=== PATIENT | male | born 1970 | race Caucasian/White ===

== ENCOUNTER 2016-07-28 02:28 | Observation (INO) | payer BC ==
[2016-07-28] MEDS ORDERED: Morphine 10 MG/ML Syringe IVPUSH ONE ×2 (02:53→03:28)
[2016-07-28] MEDS ORDERED: Ondansetron 4 MG/2 ML SDV IVPUSH ONE (02:54)
[2016-07-28 03:07] LABS: CHLORIDE,CL 101 mmol/L (98-107); SODIUM,NA 139 mmol/L (136-145)
[2016-07-28] MEDS ORDERED: Sodium Chloride 0.9% 1,000 ML IV ONE (03:33)
--- NOTE | 2016-07-28 03:33 | EDM.PDOC ---
ED HPI GENERAL MEDICAL PROBLEM - General Chief Complaint: General Stated Complaint: Abdominal Pain Time Seen by Provider: 07/28/16 03:03 Source of Information: Reports: Patient, Family History Limitations: Reports: No limitations - History of Present Illness INITIAL COMMENTS - FREE TEXT/NARRATIVE: Sudden sharp abdominal pain that began around 11pm. Has now persisted for over 4 hours. Positional change makes no difference in pain. No reported radiation. Had one episode of nausea/vomiting prior to arrival. Similar, less intense episode of pain about two months ago. Resolved on own. Also started in middle of night like this. Patient was started on Augmentin mid week for "sinus infection". He reports being ill last week with flu-like illness. Symptoms included sinus congestion, body aches, cough, and diarrhea. Diarrhea persists. Describes stool as being dark in color. No urinary complaints. No increased burping. No history of prior abdominal surgery. - Related Data Allergies Allergy/AdvReac Type Severity Reaction Status Date / Time No Known Allergies Allergy Verified 07/28/16 02:55 Home Meds: Home Meds Amoxicillin/Clavulanate K [Augmentin 875 MG/125 MG] 1 tab PO BID 07/28/16 [ History] Past Medical History - Past Health History Medical/Surgical History: Denies Medical/Surgical History Social & Family History - Tobacco Use Smoking Status *Q: Current Every Day Smoker Years of Tobacco use: 15 Packs/Tins Daily: 0.5 - Caffeine Use Caffeine Use: Reports: Soda ED ROS GENERAL - Review of Systems Review Of Systems: See Below Constitutional: Reports: malaise, diaphoresis, decreased appetite. Denies: fever, chills, weakness, fatigue, weight loss, weight gain HEENT: Reports: Sinus problem. Denies: Ear pain, Throat swelling, Vertigo Respiratory: Reports: cough (last week, has improved. ). Denies: shortness of breath, wheezing, pleuritic chest pain, sputum, hemoptysis Cardiovascular: Reports: No symptoms. Denies: Chest pain GI/Abdominal: Reports: Abdominal pain, Diarrhea, Decreased appetite, Nausea, Vomiting, Other (darker stools). Denies: Difficulty swallowing, Distension, Hematemesis, Mucous in stool : Reports: no symptoms Musculoskeletal: Reports: other (diffuse achiness) Skin: Reports: no symptoms Neurological: Reports: tingling (all four limbs currently). Denies: confusion, dizziness, headache, syncope, trouble speaking Psychiatric: Reports: No symptoms Hematologic/Lymphatic: Reports: no symptoms Immunologic: Reports: no symptoms ED EXAM, GENERAL - Physical Exam Exam: See Below Exam Limited By: No limitations General Appearance: alert, WD/WN, moderate distress Eye Exam: bilateral eye: EOMI, PERRL Ears: normal external exam Nose: No: nasal swelling, nasal drainage, clear rhinorrhea Throat/Mouth: Normal inspection, Normal voice, No airway compromise Head: atraumatic, normocephalic Neck: normal inspection, supple, non-tender, full range of motion. No: lymphadenopathy (L), lymphadenopathy (R) Respiratory/Chest: no respiratory distress, lungs clear, normal breath sounds, no accessory muscle use, chest non-tender Cardiovascular: normal peripheral pulses, regular rate, rhythm, no edema Peripheral Pulses: 3+: radial (L), radial (R) GI/Abdominal: normal bowel sounds, soft, tender (RUQ and alethea-umbilically). No : no distention, no abnormal bruit, guarding, rigid, rebound (Male) Exam: Deferred Rectal (Males) Exam: Normal rectal tone, Prostate normal, Heme - stool, Hemorrhoids Back Exam: CVA tenderness (R) Extremities: normal inspection Neurological: alert, oriented, normal cognition, no motor/sensory deficits Psychiatric: normal affect, normal mood Skin Exam: Warm, Dry, Intact, Normal color Course - Vital Signs Last Recorded V/S: Last Vital Signs Temp 36.4 C 07/28/16 02:30 Pulse 81 07/28/16 02:30 Resp 20 07/28/16 02:30 BP 144/96 H 07/28/16 02:30 Pulse Ox 100 07/28/16 02:30 - Orders/Labs/Meds Orders: Active Orders 24 hr Category Date Time Status Peripheral IV Care [RC] . DIRECTED Care 07/28/16 03:58 Active Abdomen 2V AP Flat Upright [CR] Stat Exams 07/28/16 02:50 Ordered Abdomen Pelvis w Cont [CT] Routine Exams 07/28/16 05:00 Ordered Abdomen Pelvis wo Cont [CT] Stat Exams 07/28/16 03:27 Taken OCCULT BLOOD DIAGNOSTIC [OP] Stat Lab 07/28/16 04:13 Ordered Iopamidol [Isovue-300 (61%)] Med 07/28/16 05:00 Once 100 ml IVPUSH ONETIME ONE Sodium Chloride 0.9% [Normal Saline] 1,000 ml Med 07/28/16 03:33 Ordered IV .BOLUS Sodium Chloride 0.9% [Saline Flush] Med 07/28/16 03:58 Active 10 ml FLUSH ASDIRECTED PRN Peripheral IV Insertion Adult [OM.PC] Routine Oth 07/28/16 02:35 Ordered Medication Orders Sodium Chloride (Normal Saline) 1,000 mls @ 999 mls/hr IV .BOLUS ONE Stop: 07/28/16 04:33 Last Admin: 07/28/16 03:58 Dose: 999 mls/hr Iopamidol (Isovue-300 (61%)) 100 ml IVPUSH ONETIME ONE Stop: 07/28/16 05:01 Sodium Chloride (Saline Flush) 10 ml FLUSH ASDIRECTED PRN PRN Reason: Keep Vein Open Labs: Laboratory Tests 07/28/16 07/28/16 Range/Units 02:54 02:54 WBC 7.1 (4.0-10.2) K/uL RBC 5.15 (4.33-5.41) M/uL Hgb 15.9 (13.1-16.8) g/dL Hct 47.3 (39.0-49.0) % MCV 91.8 (84.0-98.0) fL MCH 30.9 (28.2-33.3) pg MCHC 33.6 (31.7-36.0) g/dL RDW 13.0 (11.2-14.1) % Plt Count 275 (150-350) K/uL Neut % (Auto) 74.7 (45.0-80.0) % Lymph % (Auto) 16.0 (10.0-50.0) % Converse % (Auto) 8.8 (2.0-14.0) % Eos % (Auto) 0.4 (0.0-5.0) % Baso % (Auto) 0.1 (0.0-2.0) % Neut # 5.31 (1.40-7.00) K/uL Lymph # 1.14 (0.50-3.50) K/uL Converse # 0.63 (0.00-1.00) K/uL Eos # 0.03 (0.00-0.50) K/uL Baso # 0.01 (0.00-0.20) K/uL Sodium 139 (136-145) mmol/L Potassium 3.6 (3.5-5.1) mmol/L Chloride 101 (98-107) mmol/L Carbon Dioxide 26.5 (21.0-32.0) mmol/L BUN 9 (7-18) mg/dL Creatinine 1.05 (0.51-1.17) mg/dL Est Cr Clr Drug Dosing TNP Estimated GFR (MDRD) > 60 mL/min Glucose 166 H (74-106) mg/dL Calcium 8.9 (8.5-10.1) mg/dL Total Bilirubin 0.4 (0.2-1.0) mg/dL AST 48 H (15-37) U/L ALT 81 H (12-78) U/L Alkaline Phosphatase 60 (46-116) IU/L Total Protein 8.1 (6.4-8.2) g/dL Albumin 3.8 (3.4-5.0) g/dL Amylase 77 (25-115) U/L Lipase 134 (73-393) U/L Meds: Medications Generic Name Dose Route Start Last Admin Trade Name Freq PRN Reason Stop Dose Admin Sodium Chloride 1,000 mls @ 999 mls/hr 07/28/16 03:33 07/28/16 03:58 Normal Saline IV 07/28/16 04:33 999 mls/hr .BOLUS ONE Administration Iopamidol 100 ml 07/28/16 05:00 Isovue-300 (61%) IVPUSH 07/28/16 05:01 ONETIME ONE Sodium Chloride 10 ml 07/28/16 03:58 Saline Flush FLUSH ASDIRECTED PRN Keep Vein Open Discontinued Medications Generic Name Dose Route Start Last Admin Trade Name Freq PRN Reason Stop Dose Admin Morphine Sulfate 5 mg 07/28/16 02:53 07/28/16 02:57 Morphine IVPUSH 07/28/16 02:54 5 mg ONETIME ONE Administration Morphine Sulfate 5 mg 07/28/16 03:28 07/28/16 04:04 Morphine IVPUSH 07/28/16 03:29 5 mg ONETIME ONE Administration Ondansetron HCl 4 mg 07/28/16 02:54 07/28/16 02:59 Zofran IVPUSH 07/28/16 02:55 4 mg ONETIME ONE Administration - Radiology Interpretation Free Text/Narrative:: Abdominal flat/upright showed some air/fluid levels. No obvious obstruction. - Re-Assessments/Exams Free Text/Narrative Re-Assessment/Exam: 07/28/16 03:41 Pain improved with MS. Normal WBC/CBC. AST and ALT above normal. Amylase and Lipase normal. Chem overall unremarkable. Patient has not been able to void for UA. Plan at this time is to have non-contrast CT to rule out stones. If negative, will perform contrast enhanced CT. Free Text/Narrative Re-Assessment/Exam: 07/28/16 04:[address] Noted to have very large distended gallbladder. Stomach also large. CT with contrast not needed, canceled. Recommended obtaining US study in morning. Will admit patient on observation pending US study and for pain control. Free Text/Narrative Re-Assessment/Exam: 07/28/16 04:32 Patient noted by nursing to have small stool with some bright red blood. Negative for occult blood during physical exam. Departure - Departure Time of Disposition: 04:27 Disposition: Refer to Observation Condition: good Clinical Impression: Right upper quadrant pain Referrals: Jon Marmloejo PA [Primary Care Provider] - Forms: ED Department Discharge - Problem List & Annotations (1) Right upper quadrant pain SNOMED Code(s): 272939471 Code(s): R10.11 - RIGHT UPPER QUADRANT PAIN Status: Acute Priority: High Current Visit: Yes Annotation/Comment:: US study of RUQ will be ordered for today. Distended gallbladder and stomach noted on CT. (2) Tobacco dependence SNOMED Code(s): 05815826 Code(s): F17.200 - NICOTINE DEPENDENCE, UNSPECIFIED, UNCOMPLICATED Status: Chronic Priority: Low Current Visit: No - Problem List Review Problem List Initiated/Reviewed/Updated: Yes - My Orders Last 24 Hours: My Active Orders 07/28/16 02:35 Peripheral IV Insertion Adult [OM.PC] Routine 07/28/16 02:50 Abdomen 2V AP Flat Upright [CR] Stat 07/28/16 03:27 Abdomen Pelvis wo Cont [CT] Stat 07/28/16 03:33 Sodium Chloride 0.9% [Normal Saline] 1,000 ml IV .BOLUS 07/28/16 03:58 Peripheral IV Care [RC] . DIRECTED Sodium Chloride 0.9% [Saline Flush] 10 ml FLUSH ASDIRECTED PRN 07/28/16 04:13 OCCULT BLOOD DIAGNOSTIC [OP] Stat 07/28/16 05:00 Abdomen Pelvis w Cont [CT] Routine Iopamidol [Isovue-300 (61%)] 100 ml IVPUSH ONETIME ONE - Assessment/Plan Admission H&P: Please use this note as an admission H&P Last 24 Hours: My Active Orders 07/28/16 02:35 Peripheral IV Insertion Adult [OM.PC] Routine 07/28/16 02:50 Abdomen 2V AP Flat Upright [CR] Stat 07/28/16 03:27 Abdomen Pelvis wo Cont [CT] Stat 07/28/16 03:33 Sodium Chloride 0.9% [Normal Saline] 1,000 ml IV .BOLUS 07/28/16 03:58 Peripheral IV Care [RC] . DIRECTED Sodium Chloride 0.9% [Saline Flush] 10 ml FLUSH ASDIRECTED PRN 07/28/16 04:13 OCCULT BLOOD DIAGNOSTIC [OP] Stat 07/28/16 05:00 Abdomen Pelvis w Cont [CT] Routine Iopamidol [Isovue-300 (61%)] 100 ml IVPUSH ONETIME ONE Assessment:: RUQ pain, suspect secondary to gallbladder disease. Recent viral infection and subsequent Augmentin prescription for sinusitis. Plan: Admit to observation. IV hydration and pain control. US study today to further evaluate gallbladder. Patient NPO except for ice chips.
[2016-07-28] MEDS ORDERED: Sodium Chloride 0.9% 10 ML Syringe FLUSH PRN (03:58)
[2016-07-28] MEDS ORDERED: HYDROmorphone 1 MG/ML Syringe IVPUSH PRN (04:48)
[2016-07-28] MEDS ORDERED: HYDROmorphone 1 MG/ML Syringe IVPUSH ONE (04:49)
[2016-07-28] MEDS ORDERED: Ondansetron 4 MG/2 ML SDV IVPUSH PRN (04:50)
[2016-07-28] MEDS ORDERED: Sodium Chloride 0.9% 1,000 ML IV SCH (05:00)
[2016-07-28] MEDS ORDERED: Iopamidol 612 MG/ML 100 ML Bottle IVPUSH ONE (05:00)
[2016-07-28] MEDS ORDERED: Nicotine 14 MG/24 Hr Patch TRDERM SCH (08:00)
[2016-07-28] MEDS ORDERED: Pantoprazole 40 MG Vial IVPUSH SCH ×2 (08:00→20:00)
[2016-07-28 08:52] VITALS: BP 142/97
[2016-07-28] MEDS ORDERED: Famotidine 20 MG/2 ML SDV IVPUSH ONE (09:56)
[2016-07-28] MEDS ORDERED: Meperidine PF 50 MG/ML Syringe IM PRN (10:00)
[2016-07-28] MEDS ORDERED: Acetaminophen 325 MG Tab PO PRN (10:00)
[2016-07-28] MEDS ORDERED: traMADol 50 MG Tab PO PRN (10:00)
--- NOTE | 2016-07-28 11:52 | PCM.DCSUM1 ---
Discharge Summary - Hospital Course HPI Initial Comments: See emergency room note/admission H&P Brief History: See emergency room note/admission H&P - Discharge Data Discharge Date: 07/28/16 Discharge Disposition: DC/Tfer to Acute Hospital 02 Condition: Good - Discharge Diagnosis/Problem(s) (1) Acute cholecystitis due to biliary calculus SNOMED Code(s): 40685752552956 ICD Code: K80.00 - CALCULUS OF GALLBLADDER W ACUTE CHOLECYST W/O OBSTRUCTION Status: Acute Priority: High Current Visit: Yes Onset Date: ~07/28/16 Problem Details: Positive CT scan of the abdomen and gallbladder ultrasound as below. Initial telephone consultation at [facility] at 09:10 hours with general surgeon longwall shearer operator currently in surgery. Subsequent telephone consultation at 11:[address] Faust, general surgeon in that facility, who does accept the patient for further treatment and evaluation. No further treatment recommendations given, although she is requesting that the patient be initially seen in the emergency room. She is in agreement with private automobile transfer, and they will contact the emergency room for me concerning the patient transfer. High-dose IV Protonix and IV Pepcid were given as GI prophylaxis. Previous morphine and Dilaudid therapy was changed to IM Phenergan secondary to mild common bile duct dilatation with no direct evidence of obstructing stone. Consider ERCP depending on clinical course. Continue to observe blood pressure closely, which is somewhat elevated secondary to patient' s discomfort. Vital signs are stable at time of transfer with patient still afebrile with no leukocytosis and no indication for further antibiotic therapy. Note current Augmentin therapy secondary to sinusitis, which has improved by his history. (2) Abnormal LFTs SNOMED Code(s): 469699005 ICD Code: R79.89 - OTHER SPECIFIED ABNORMAL FINDINGS OF BLOOD CHEMISTRY Status: Acute Priority: High Current Visit: Yes Onset Date: 07/28/16 Problem Details: LFTs elevation secondary to acute cholecystitis and/or current Augmentin therapy. Total bilirubin is normal. Continue to observe closely by the accepting physicians. (3) Tobacco abuse counseling SNOMED Code(s): 842294547, 699320318, [id number] ICD Code: Z71.6 - TOBACCO ABUSE COUNSELING Status: Chronic Priority: Medium Current Visit: Yes Problem Details: Tobacco cessation strongly encouraged with information provided at discharge (4) Sinusitis SNOMED Code(s): 79804565 ICD Code: J32.9 - CHRONIC SINUSITIS, UNSPECIFIED Status: Acute Priority: Medium Current Visit: Yes Problem Details: As above Qualifiers: Sinusitis location: unspecified location Chronicity: acute - Patient Summary/Data Operative Procedure(s) Performed: None Complications: None Consults: Surgical consultation as above Labs Pending at D/C: None Recommended Follow-up Testing/Procedures: Probable laparoscopic cholecystectomy and/or ERCP Planned Operative Procedure(s) after DC: As above Hospital Course: The patient was initially admitted to observation status by on-call [facility] physician for pain control secondary to probable acute cholecystitis. Subsequent surgical consultation as above after reports from gallbladder ultrasound was received. Patient and his are in agreement with treatment plan and are requesting transfer to [facility]. Patient has been n.p.o. since supper yesterday evening. - Patient Instructions Diet: NPO Activity: As Tolerated Driving: Do Not Drive Showering/Bathing: May Shower Notify Provider of: Fever, Increased Pain, Nausea and/or Vomiting Other/Special Instructions: 1. Your is to drive you to the emergency room at [facility] for initial evaluation and probable direct admission for gallbladder surgery. 2. STRICT nothing to eat or drink until otherwise directed by [place] physicianS. 3. Stop all tobacco use [facility] as directed/per provided information and consider contacting [employer], etc.. - Discharge Plan Home Medications: Home Meds Amoxicillin/Clavulanate K [Augmentin 875 MG/125 MG] 1 tab PO BID 07/28/16 [ History] Patient Handouts: Hydromorphone injection, Abdominal or Pelvic Ultrasound, Easy -to-Read, Abdominal Pain, Adult, [id number] Forms: ED Department Discharge, Return to Work/School Form, Interfacility Transfer EMTALA Referrals: Jon Marmolejo PA [Primary Care Provider] - - Discharge Summary/Plan Comment DC Time >30 min.: Yes (Coordination of care) Discharge Summary/Plan Comment: As above. Extensive precautions were given to the patient and his , who are in agreement with the treatment plan. See Patient Instructions for further treatment and plan. - General Info Date of Service: 07/28/16 Admission Dx/Problem (Free Text: Abdominal pain Functional Status: Reports: pain controlled, ambulating, urinating. Denies: tolerating diet (N.p.o.), new symptoms, incentive spirometry Numeric/FACES Score: 5 - Review of Systems General: Reports: no symptoms. Denies: fever, weakness, fatigue, malaise, chills, night sweats HEENT: Reports: no symptoms Pulmonary: Reports: no symptoms. Denies: shortness of breath, pleuritic chest pain, cough, wheezing Cardiovascular: Reports: no symptoms. Denies: chest pain, palpitations, dyspnea on exertion, orthopnea, PND, edema, lightheadedness Gastrointestinal: Reports: Abdominal pain, Hematochezia (Minimal bowel movement with possible mild hematochezia however negative Hemoccult on admission by rectal exam). Denies: Diarrhea, Difficulty swallowing, Flatus, Melena, Nausea, Vomiting Genitourinary: Reports: no symptoms. Denies: dysuria, frequency, burning, pain , urgency, incontinence, hematuria, retention, flank pain Musculoskeletal: Reports: no symptoms. Denies: neck pain, shoulder pain, arm pain, leg pain Skin: Reports: no symptoms. Denies: jaundice, diaphoresis, bruising Neurological: Reports: no symptoms. Denies: confusion, dizziness, headache, numbness, paresthesia, tingling, weakness Psychiatric: Reports: no symptoms. Denies: confusion, depression, anxiety, agitation, hallucinations - Patient Data Vitals - Most Recent: Last Vital Signs Temp 36.5 C 07/28/16 08:00 Pulse 76 07/28/16 08:00 Resp 18 07/28/16 08:00 BP 142/97 H 07/28/16 08:00 Pulse Ox 97 07/28/16 08:00 Vital Signs - 24 hr 07/28/16 07/28/16 07/28/16 02:30 04:44 08:00 Temperature [ 36.4 C 36.4 C 36.5 C Oral] Pulse, 81 63 76 Peripheral [ Pulse Oximetry] Respiratory 20 16 18 Rate Blood Pressure 144/96 H 137/83 142/97 H [Left Upper Arm ] O2 Sat by Pulse 100 100 97 Oximetry Weight - Most Recent: 93.758 kg Imaging Impressions - Last 24 hrs: Initial read of abdominal x-rays, flat and upright, by [facility] physician shows evidence of occasional fluid levels but no apparent free air, ileus, or obstruction Subsequent verbal report of noncontrast CT scan of the abdomen and pelvis confirms significantly enlarged gallbladder with gallbladder wall inflammation with recommended followup gallbladder ultrasound. Telephone consultation at 09:00 hours with certified control systems technician in our facility indicates positive gallbladder ultrasound for significantly distended gallbladder and gallbladder wall inflammation with multiple mobile gallstones present. Common bile duct not completely visualized, however no direct evidence of obstructing stones or other significant hepatic duct dilatation Lab Results - Last 24 hrs: Laboratory Tests 07/28/16 07/28/16 Range/Units 02:54 02:54 WBC 7.1 (4.0-10.2) K/uL RBC 5.15 (4.33-5.41) M/uL Hgb 15.9 (13.1-16.8) g/dL Hct 47.3 (39.0-49.0) % MCV 91.8 (84.0-98.0) fL MCH 30.9 (28.2-33.3) pg MCHC 33.6 (31.7-36.0) g/dL RDW 13.0 (11.2-14.1) % Plt Count 275 (150-350) K/uL Neut % (Auto) 74.7 (45.0-80.0) % Lymph % (Auto) 16.0 (10.0-50.0) % Alexander % (Auto) 8.8 (2.0-14.0) % Eos % (Auto) 0.4 (0.0-5.0) % Baso % (Auto) 0.1 (0.0-2.0) % Neut # 5.31 (1.40-7.00) K/uL Lymph # 1.14 (0.50-3.50) K/uL Alexander # 0.63 (0.00-1.00) K/uL Eos # 0.03 (0.00-0.50) K/uL Baso # 0.01 (0.00-0.20) K/uL Sodium 139 (136-145) mmol/L Potassium 3.6 (3.5-5.1) mmol/L Chloride 101 (98-107) mmol/L Carbon Dioxide 26.5 (21.0-32.0) mmol/L BUN 9 (7-18) mg/dL Creatinine 1.05 (0.51-1.17) mg/dL Est Cr Clr Drug Dosing TNP Estimated GFR (MDRD) > 60 mL/min Glucose 166 H (74-106) mg/dL Calcium 8.9 (8.5-10.1) mg/dL Total Bilirubin 0.4 (0.2-1.0) mg/dL AST 48 H (15-37) U/L ALT 81 H (12-78) U/L Alkaline Phosphatase 60 (46-116) IU/L Total Protein 8.1 (6.4-8.2) g/dL Albumin 3.8 (3.4-5.0) g/dL Amylase 77 (25-115) U/L Lipase 134 (73-393) U/L SURYA Results - Last 24 hrs: Microbiology 07/28/16 03:25 Stool Occult Blood (SURYA) - Final Stool / Feces NEGATIVE OCCULT BLOOD Med Orders - Current: Current Medications Acetaminophen (Tylenol) 650 mg PO Q4H PRN PRN Reason: Pain (Mild 1-3)/fever Famotidine (Pepcid) 20 mg IVPUSH BID COUNT INCLUDES THE [facility] Sodium Chloride (Normal Saline) 1,000 mls @ 125 mls/hr IV ASDIRECTED COUNT INCLUDES THE [facility] Last Admin: 07/28/16 05:05 Dose: 125 mls/hr Meperidine HCl (Demerol) 50 mg IM Q6H PRN PRN Reason: Pain (severe 7-10) Nicotine (Habitrol) 14 mg TRDERM DAILY COUNT INCLUDES THE [facility] Last Admin: 07/28/16 08:47 Dose: Not Given Ondansetron HCl (Zofran) 4 mg IVPUSH Q6H PRN PRN Reason: Nausea/Vomiting Pantoprazole Sodium (Protonix Iv) 40 mg IVPUSH Q12H COUNT INCLUDES THE [facility] Sodium Chloride (Saline Flush) 10 ml FLUSH ASDIRECTED PRN PRN Reason: Keep Vein Open Last Admin: 07/28/16 10:33 Dose: 10 ml Tramadol HCl (Ultram) 50 mg PO Q6H PRN PRN Reason: Pain (moderate 4-6) Discontinued Medications Famotidine (Pepcid) 40 mg IVPUSH ONETIME ONE Stop: 07/28/16 09:57 Last Admin: 07/28/16 10:29 Dose: 40 mg Hydromorphone HCl (Dilaudid) 1 mg IVPUSH Q1H PRN PRN Reason: Pain Hydromorphone HCl (Dilaudid) 2 mg IVPUSH ONETIME ONE Stop: 07/28/16 04:50 Last Admin: 07/28/16 05:05 Dose: 2 mg Sodium Chloride (Normal Saline) 1,000 mls @ 999 mls/hr IV .BOLUS ONE Stop: 07/28/16 04:33 Last Admin: 07/28/16 03:58 Dose: 999 mls/hr Iopamidol (Isovue-300 (61%)) 100 ml IVPUSH ONETIME ONE Stop: 07/28/16 05:01 Morphine Sulfate (Morphine) 5 mg IVPUSH ONETIME ONE Stop: 07/28/16 02:54 Last Admin: 07/28/16 02:57 Dose: 5 mg Morphine Sulfate (Morphine) 5 mg IVPUSH ONETIME ONE Stop: 07/28/16 03:29 Last Admin: 07/28/16 04:04 Dose: 5 mg Ondansetron HCl (Zofran) 4 mg IVPUSH ONETIME ONE Stop: 07/28/16 02:55 Last Admin: 07/28/16 02:59 Dose: 4 mg Pantoprazole Sodium (Protonix Iv) 40 mg IVPUSH DAILY AAKASH Last Admin: 07/28/16 08:43 Dose: 40 mg - Exam Quality Assessment: Reports: DVT prophylaxis. Denies: supplemental oxygen, central line/PICC, urine catheter, skin breakdown, restraints General: Reports: alert, oriented, cooperative, no acute distress HEENT: Reports: Pupils equal, Pupils reactive, EOMI, Mucous membr. moist/pink. Denies: Scleral icterus Neck: Reports: supple, trachea midline, no JVD, no thyromegaly. Denies: lymphadenopathy Lungs: Reports: Clear to auscultation, Normal respiratory effort. Denies: Rales , Rub Cardiovascular: Reports: regular rate, regular rhythm, no murmurs. Denies: gallops, rubs Abdomen: Reports: bowel sounds present, guarding (Mild to moderate right upper quadrant palpation pain), tenderness (As above), distension (Borderline). Denies: rebound, CVA tenderness (Male) Exam: Deferred Rectal (Males) Exam: Deferred (Conducted in the emergency room by [facility] physician) Back Exam: Reports: normal inspection, full range of motion. Denies: CVA tenderness (L), CVA tenderness (R), muscle spasm Extremities: Reports: no edema, normal pulses, no tenderness/swelling, no calf tenderness Skin: Reports: warm, dry, intact. Denies: rash, ecchymosis Neurological: Reports: no new focal deficit Psy/Mental Status: Reports: alert, normal affect, normal mood *Q Meaningful Use (DIS) - VTE *Q VTE Criteria *Q: - Stroke *Q Stroke Criteria *Q: - AMI *Q AMI Criteria *Q:
[2016-07-29] MEDS ORDERED: Famotidine 20 MG/2 ML SDV IVPUSH SCH (08:00)
== END 2016-07-28 12:35 ==
LOC: LL.ED 02:28 → LL.MS 04:30
PROVIDERS: ADMIT Emergency Medicine; ATTEND Family Medicine
DX: K80.00 Calculus of gallbladder with acute cholecystitis without obstruction (principal); R79.89 Other specified abnormal findings of blood chemistry; Z71.6 Tobacco abuse counseling; J32.9 Chronic sinusitis, unspecified; Z79.2 Long term (current) use of antibiotics; F17.210 Nicotine dependence, cigarettes, uncomplicated
CPT/HCPCS: 36415; 74020; 74176; 76705; 80053; 82150; 82272; 83690; 85025; 96361; 96374; 96375; 96376; 99285; C9113; G0378; J1170; J2270; J2405; J7030; J7050; S0028